=== PATIENT | male | born 1985 | race Two or more races ===

== ENCOUNTER 2017-11-16 08:45 | Emergency (ER) | payer OTHER ==
[~2017-11-16] VITALS: Ht 172.7 cm; Wt 100.0 kg
[2017-11-16] MEDS ORDERED: BACTRIM DS1 TAB PO (10:15)
[2017-11-16] MEDS ORDERED: LORTAB 1010 MG PO (10:15)
[2017-11-16] MEDS ORDERED: CEPHALEXIN500 MG PO (10:15)
[2017-11-16 10:20] VITALS: BP 135/72
== END 2017-11-16 10:30 | disposition home or self-care (01) | DRG 603 ==
LOC: ED 08:45
PROC: 0H9GXZZ Drainage of Left Hand Skin, External Approach (ICD-10-PCS; principal; 2017-11-16)
DX: L02.512 Cutaneous abscess of left hand (principal); W22.8XXA Striking against or struck by other objects, initial encounter; Y93.89 Activity, other specified; Y92.74 Orchard as the place of occurrence of the external cause; Y99.0 Civilian activity done for income or pay

== ENCOUNTER 2017-11-17 08:32 | Emergency (ER) | payer OTHER ==
[~2017-11-17] VITALS: Ht 172.7 cm; Wt 75.0 kg
[~2017-11-17 08:32] MED LIST: BACTRIM DS1 TAB PO; CEPHALEXIN500 MG PO; LORTAB 1010 MG PO
[2017-11-17 08:58] VITALS: BP 141/73
== END 2017-11-17 09:07 | disposition home or self-care (01) | DRG 951 ==
LOC: ED 08:32
DX: Z48.01 Encounter for change or removal of surgical wound dressing (principal)

== ENCOUNTER 2017-11-18 07:51 | Emergency (ER) | payer OTHER ==
[~2017-11-18] VITALS: Ht 172.7 cm; Wt 90.0 kg
[2017-11-18 08:40] VITALS: BP 141/76
== END 2017-11-18 08:40 | disposition home or self-care (01) | DRG 951 ==
LOC: ED 07:51
DX: Z48.01 Encounter for change or removal of surgical wound dressing (principal)